=== PATIENT | female | born 1960 | race Caucasian/White ===

== ENCOUNTER 2018-03-29 15:28 | Emergency (ER) | payer OTHER ==
[~2018-03-29] VITALS: Ht 167.6 cm; Wt 133.0 kg
[~2018-03-29 15:28] MED LIST: ASPIRIN EC81 MG PO; HYDROCHLOROTH12.5 M1 PO; LEVOTHYROXINE75 MCG PO; LISINOPRIL10 MG PO; METFORMIN HCL500 M2 PO; METOPROLOL SUCC25 MG PO
[2018-03-29] MEDS ORDERED: ALBUTEROL0.63 MG/3 PO (15:47)
[2018-03-29] MEDS ORDERED: LISINOPRIL-HCT1 EACH PO (15:47)
[2018-03-29] MEDS ORDERED: ATORVASTATIN CA20 MG PO (15:47)
--- NOTE | 2018-03-29 16:12 | Diagnostic Imaging Report ---
Left foot 3 - views HISTORY: Pain COMPARISON: None FINDINGS: No displaced fracture. Osseous alignment is within normal limits. The joint spaces are well-maintained. Plantar calcaneal enthesophyte. IMPRESSION: Plantar calcaneal enthesophyte. Signed by: Dr. Herlinda Juan M.D. on 03/29/2018 4:09 PM
== END 2018-03-29 17:15 | disposition home or self-care (01) ==
LOC: FSED 15:28
DX: S93.622A Sprain of tarsometatarsal ligament of left foot, initial encounter (principal); X50.1XXA Overexertion from prolonged static or awkward postures, initial encounter; Y93.54 Activity, bowling; Y92.39 Other specified sports and athletic area as the place of occurrence of the external cause; I10 Essential (primary) hypertension; E11.9 Type 2 diabetes mellitus without complications
CPT/HCPCS: 99284

== ENCOUNTER 2018-06-08 05:31 | Emergency (ER) | payer OTHER ==
[~2018-06-08] VITALS: Ht 167.6 cm; Wt 132.9 kg
[~2018-06-08 05:31] MED LIST changes: +ALBUTEROL0.63 MG/3 PO; +ATORVASTATIN CA20 MG PO; +LISINOPRIL-HCT1 EACH PO
--- OUTSIDE RECORDS SUMMARY | 2018-06-08 05:34 | XMS REPORT ---
Author Author [facility] Address Unknown Phone Unavailable Care Team Providers Care Loss Prevention Analyst Name Role Phone Patti ALBA Unavailable Unavailable Problems This patient has no known problems. Allergies, Adverse Reactions, Alerts This patient has no known allergies or adverse reactions. Medications This patient has no known medications. Results Test Description Test Time Test Comments Text Results Atomic Results Result Comments FOOT 3 VIEW [facility] 2018-03-29 16:06:00 [place] [id number] Patient Name: MANAN FERNANDEZ MR #: [id number] : 1960 Age/Sex: 57/F Req #: [id number] Adm Physician: Ordered by: KEVIN ALBA MD Report #: [id number] Location: [facility] Room/Bed: Procedure: [id number] HOPD/FOOT 3 VIEW [facility] Exam Date: 03/29/18 Exam Time: 1555 REPORT STATUS: Signed Left foot 3 - views HISTORY: Pain COMPARISON: None FINDINGS: No displaced fracture. Osseous alignment is within normal limits. The joint spaces are well-maintained. Plantar calcaneal enthesophyte. IMPRESSION: Plantar calcaneal enthesophyte. Signed by: Dr. Herlinda Ocampo M.D. on 03/29/2018 4:09 PM Dictated By: NEERAJ OCAMPO MD, MD 08 Transcribed By: [place] on 03/29/181608 COPY TO: KEVIN ALBA MD
== END 2018-06-08 06:07 | disposition home or self-care (01) ==
LOC: FSED 05:31
DX: H57.12 Ocular pain, left eye (principal); H10.022 Other mucopurulent conjunctivitis, left eye
CPT/HCPCS: 99282

== ENCOUNTER 2019-03-06 22:24 | Emergency (ER) | payer OTHER ==
[~2019-03-06] VITALS: Ht 167.6 cm; Wt 132.9 kg
[2019-03-06] MEDS ORDERED: TRAMADOL HCL 50 MG TAB PO ONE (22:45)
--- NOTE | 2019-03-06 23:05 | NUR ---
ECHOVASCULAR TECH CALLED OUT BY DR. RENDON
--- NOTE | 2019-03-06 23:54 | Diagnostic Imaging Report ---
LEFT KNEE RADIOGRAPHS 3 VIEWS HISTORY: Pain. COMPARISON: None available. FINDINGS: Bones: No acute displaced fracture. Osseous alignment is within normal limits. Joints: The joint spaces are well-maintained. Trace joint fluid. Soft tissues: The soft tissues appear unremarkable. IMPRESSION: No acute radiographic osseous abnormality. Trace joint fluid. Signed by: Pastor Bhatia DO on 03/06/2019 11:51 PM
== END 2019-03-07 01:17 | disposition home or self-care (01) ==
LOC: ER 22:24
DX: S83.522A Sprain of posterior cruciate ligament of left knee, initial encounter (principal); M25.462 Effusion, left knee; X50.1XXA Overexertion from prolonged static or awkward postures, initial encounter; Y92.008 Other place in unspecified non-institutional (private) residence as the place of occurrence of the external cause; I10 Essential (primary) hypertension; E11.9 Type 2 diabetes mellitus without complications; E03.9 Hypothyroidism, unspecified; E78.5 Hyperlipidemia, unspecified; E66.9 Obesity, unspecified
CPT/HCPCS: 93971; 99284

== ENCOUNTER 2021-07-24 14:29 | Emergency (ER) | payer OTHER ==
[~2021-07-24] VITALS: Ht 167.6 cm; Wt 132.9 kg
[~2021-07-24 14:29] MED LIST changes: +CEFTIN PO; +Meclizine Hcl PO
[2021-07-24] MEDS ORDERED: SODIUM CHLORIDE 0.9% 1000ML 1,000 ML IV STA (14:54)
[2021-07-24] MEDS ORDERED: DIPHENHYDRAMINE HCL INJ 50 MG/ML VIAL IV ONE (15:00)
[2021-07-24] MEDS ORDERED: METOCLOPRAMIDE HCL 10 MG/2ML VIAL IV NR (15:00)
[2021-07-24] MEDS ORDERED: DEXAMETHASONE 10MG/ML PF INJ IV ONE (15:00)
[2021-07-24 15:08] LABS: BASOPHILS # (AUTO) 0.1 (0.0-0.1); EOSINOPHILS # (AUTO) 0.2 (0.0-0.4); EOSINOPHILS % 1.9 % (0.0-6.0); HEMATOCRIT 40.9 % (34.2-44.1); HEMOGLOBIN 13.1 g/dL (12.0-16.0); LYMPHOCYTES # (AUTO) 4.1 (1.0-3.2); LYMPHOCYTES % 33.1 % (18.0-39.1); MEAN CORPUSCULAR HEMOGLOBIN 28.4 pg (28-32); MEAN CORPUSCULAR VOLUME 88.5 fL (81-99); MONOCYTES # (AUTO) 0.8 (0.2-0.8); MONOCYTES % 6.2 % (4.4-11.3); NEUTROPHILS # (AUTO) 7.1 (2.1-6.9); NEUTROPHILS % 57.6 % (38.7-80.0); PLATELET COUNT 307 x10e3/uL (140-360); RED BLOOD COUNT 4.62 x10e6/uL (3.6-5.1); RED CELL DISTRIBUTION WIDTH 13.3 % (11.7-14.4)
[2021-07-24 15:19] LABS: INR 0.88; PROTHROMBIN TIME 12.7 seconds (11.9-14.5)
[2021-07-24 15:20] LABS: PARTIAL THROMBOPLASTIN TIME 25.8 seconds (23.8-35.5)
[2021-07-24 15:28] LABS: ALBUMIN 3.9 g/dL (3.5-5.0); ALBUMIN/GLOBULIN RATIO 1.4 (0.8-2.0); ANION GAP 15.3 mmol/L (8-16); CREATININE, SERUM 0.87 mg/dL (0.57-1.11); POTASSIUM 4.3 mmol/L (3.5-5.1)
[2021-07-24 15:36] LABS: CREATINE KINASE MB 0.8 ng/mL (0-5.0)
[2021-07-24 16:31] VITALS: BP 138/87
== END 2021-07-24 16:32 | disposition home or self-care (01) ==
LOC: ER 14:38
DX: G43.909 Migraine, unspecified, not intractable, without status migrainosus (principal); I10 Essential (primary) hypertension; E11.65 Type 2 diabetes mellitus with hyperglycemia; E78.5 Hyperlipidemia, unspecified; E03.9 Hypothyroidism, unspecified; J45.909 Unspecified asthma, uncomplicated; E66.9 Obesity, unspecified
CPT/HCPCS: 36415; 70450; 80053; 82550; 82553; 84484; 85025; 85610; 85730; 93005; 99284; J1200; J2765; J7030